=== PATIENT | female | born 1970 | race Two or more races ===

== ENCOUNTER 2017-08-09 15:27 | Inpatient (IN) | payer OTHER ==
[~2017-08-09] VITALS: Ht 162.6 cm; Wt 63.5 kg
[2017-08-10] MEDS ORDERED: SYNTHROID300 MCG PO (11:33)
[2017-08-10] MEDS ORDERED: LOSARTAN POTASS50 MG PO (11:37)
[2017-08-13] MEDS ORDERED: OXYC1TAB9 PO (09:07)
== END 2017-08-13 09:39 | disposition home or self-care (01) | DRG 743 ==
LOC: OB/GYN 08-10 06:22 → O/R 08-10 06:22 → OB/GYN 08-10 12:33 → CIR.AMB 08-10 15:07 → EDSTATUS 08-10 15:08 → O/R 08-10 15:10 → OB/GYN 08-13 09:39
PROVIDERS: Obstetrics & Gynecology
PROC: 0UT70ZZ Resection of Bilateral Fallopian Tubes, Open Approach (ICD-10-PCS; 2017-08-10)
PROC: 0TSD0ZZ Reposition Urethra, Open Approach (ICD-10-PCS; 2017-08-10)
PROC: 0UT90ZZ Resection of Uterus, Open Approach (ICD-10-PCS; principal; 2017-08-10 07:00)
DX: D25.1 Intramural leiomyoma of uterus (principal); D25.0 Submucous leiomyoma of uterus; D25.2 Subserosal leiomyoma of uterus; N72 Inflammatory disease of cervix uteri; N39.3 Stress incontinence (female) (male)